=== PATIENT | male | born 1985 | race Caucasian/White ===

== ENCOUNTER 2019-12-26 15:09 | Outpatient (REF) | payer OTHER, SELFPAY ==
[2019-12-26 16:45] LABS: Hematocrit 45.2 % (42-52); Hemoglobin 15.4 g/dl (14.0-18.0)
[2019-12-26 17:09] LABS: Alanine Aminotransferase 64 U/L (0-40); Aspartate Amino Transferase 43 U/L (5-37)
[2019-12-26 17:31] LABS: Ferritin 77 ng/mL (20-250)
== END 2019-12-26 15:10 | disposition home or self-care (01) ==
LOC: HO.HMGCLDS 15:09
PROVIDERS: PCP Internal Medicine; Visit Provider Internal Medicine
DX: F90.9 Attention-deficit hyperactivity disorder, unspecified type (principal); K64.9 Unspecified hemorrhoids; E66.09 Other obesity due to excess calories; Z68.33 Body mass index [BMI] 33.0-33.9, adult; R79.0 Abnormal level of blood mineral
CPT/HCPCS: 36415; 82728; 84450; 84460; 85014; 85018

== ENCOUNTER 2020-04-21 11:42 | Outpatient (REF) | payer OTHER, SELFPAY ==
[2020-04-21 14:04] LABS: MANUAL DIFF FLAG NO
[2020-04-21 14:11] LABS: Basophils Percent Auto 0.6 % (0-2); Eosinophils Absolute Auto 0.3 X10*3/uL (0.0-0.4); Eosinophils Percent Auto 5.6 % (0-4); Hematocrit 41.8 % (42-52); Hemoglobin 14.3 g/dl (14.0-18.0); Imm Gran Abs Auto 0.01 X10*3/uL (0.00-0.03); Imm Gran Pct Auto 0.2 % (0.0-0.4); Lymphocytes Absolute Auto 1.8 X10*3/uL (1.2-4.9); Lymphocytes Percent Auto 34.9 % (20-40); Mean Corpuscular HGB Conc 34.2 g/dl (31.0-36.0); Mean Corpuscular Hemoglobin 29.7 pg (27.0-33.0); Mean Corpuscular Volume 86.7 fL (80-98); Mean Platelet Volume 10.4 fL (9.4-12.4); Monocytes Absolute Auto 0.4 X10*3/uL (0.1-1.2); Monocytes Percent Auto 7.4 % (2-11); Neutrophils Absolute Auto 2.7 X10*3/uL (2.0-8.3); Neutrophils Percent Auto 51.3 % (45-73); Platelet Count 221 X10*3/uL (160-400); Red Blood Count 4.82 X10*6/uL (4.60-5.80); Red Cell Distribution Width 12.5 % (11.0-16.0); White Blood Count 5.2 X10*3/uL (4.8-10.8)
[2020-04-21 14:44] LABS: Alanine Aminotransferase 84 U/L (0-40); Albumin Level 4.5 g/dL (3.5-5.0); Alkaline Phosphatase 51 U/L (39-117); Anion Gap 12 (12-20); Aspartate Amino Transferase 38 U/L (5-37); Bilirubin Direct 0.3 mg/dL (0.0-0.5); Bilirubin Total 0.9 mg/dL (0.0-1.0); Blood Urea Nitrogen 12 mg/dL (9-16); Calcium 9.5 mg/dL (8.4-10.2); Carbon Dioxide 27 mmol/L (22-29); Chloride 104 mmol/L (96-108); Cholesterol 241 mg/dL; Estimated Glomerular Filt Rate > 60; Glucose Fasting 101 mg/dL (60-99); HDL Cholesterol 38 mg/dL; LDL Cholesterol Calculated 180 mg/dl; Sodium 139 mmol/L (135-145); Total Protein 7.3 g/dL (6.5-8.0); Triglycerides 116 mg/dL
== END 2020-04-21 11:43 | disposition home or self-care (01) ==
LOC: HO.HMGCLDS 11:42
PROVIDERS: PCP Internal Medicine; Visit Provider Internal Medicine
DX: Z00.01 Encounter for general adult medical examination with abnormal findings (principal); E78.9 Disorder of lipoprotein metabolism, unspecified; R79.89 Other specified abnormal findings of blood chemistry; F98.8 Other specified behavioral and emotional disorders with onset usually occurring in childhood and adolescence
CPT/HCPCS: 36415; 80048; 80061; 80076; 85025

== ENCOUNTER 2020-12-08 22:24 | Emergency (ER) | payer OTHER, SELFPAY ==
--- NOTE | ~2020-12-08 | XR_ITS ---
EXAMINATION: XR KNEE, RIGHT CLINICAL INFORMATION: Edema. COMPARISON: No similar priors. TECHNIQUE: Four views of the right knee. FINDINGS: No evidence of acute fractures or malalignment. Indeterminate trabecular thickening and distortion of the medullary bone in the medial femoral condyle. Enthesophytes at the upper pole of the patella at the insertion site of the quadriceps tendon. Small joint effusion. Subcutaneous edema along the medial surface of the knee. No radiopaque foreign bodies. XR/XR knee RT 4V IMPRESSION: There is significant soft tissue thickening in the medial surface of the knee of uncertain etiology. No radiopaque foreign bodies. Small joint effusion. Indeterminate architectural distortion and trabecular thickening in the medial femoral condyle with a nonaggressive behavior. The overlying cortex is intact. If definite characterization is needed, consider further evaluation with an MR as a problem solving tool. No acute fractures or malalignment.
[2020-12-08 22:51] VITALS: BP 137/72; PULSE 94; RESP 16; TEMP 36.7; O2SAT 94; BMI 32.3
--- NOTE | 2020-12-08 23:41 | ED.LOWEXIN ---
HPI - Extremity Injury (Lower) General Chief Complaint: Extremity Injury, Lower Stated Complaint: leg inj Time Seen by Provider: 12/08/20 23:41 Source: patient Mode of arrival: ambulatory Limitations: no limitations History of Present Illness HPI Narrative: 35-year-old male no known medical history presents to the emergency department with right-sided knee pain x3 hours. He states he was playing softball, and slid into a base and his knee began to her, he also states that when he slid into the base someone's complete his right knee. He states it is worse with range of motion, better at rest. He states it hurts when bearing weight on that extremity. He states that the pain began immediately, and swelling also began immediately. He reports 10/10 pain with movement. He has no previous knee surgeries. Denies chest pain, shortness of breath, fevers, chills, weakness, numbness, tingling, paresthesias. MD complaint: knee injury (Right) Onset (ago): hour(s) (Three) Type of Injury: blunt Place: other (Softball) Severity: severe Severity scale (1-10): 10 Relieving factors: immobilization and rest Exacerbating factors: weight bearing, movement and other (Range of motion) Context: direct blow and other (Sliding into a base) Associated symptoms: swelling and unable to bear weight Other symptoms: none Related Data Home Medications Medication Instructions Recorded Confirmed albuterol sulfate 90 mcg/actuation 1 inh INHALATION Q6H PRN g 01/03/20 10/06/20 aerosol inhaler multivitamin (Daily Multi-Vitamin) 1 tab PO DAILY 01/03/20 10/06/20 Previous Rx's Medication Instructions Recorded dextroamphetamine-amphetamine ER 15 mg PO DAILY 30 Days #30 cap 10/06/20 15 mg 24hr capsule,extend release (Adderall XR) naproxen 500 mg tablet 500 mg PO BID #14 tab 12/09/20 tramadol 50 mg tablet 50 mg PO Q6H PRN #20 tab 12/09/20 Allergies Allergy/AdvReac Type Severity Reaction Status Date / Time amoxicillin [AMOXICILLIN] Allergy Unknown CHEST Verified 04/07/20 12:36 PAIN, chest tightness, chest pains Review of Systems Review of Systems: Constitutional : No Fever, No Chills, Cardiovascular : No Chest Pain, No SOB Respiratory : No Dyspnea Gastrointestinal : No abdominal pain Musculoskeletal : + Joint Swelling, + right kneep pain Skin : No rash, No skin laceration Neuro : No Weakness, No Numbness Neurologic: Reports Abnormal speech present [facility] Past Medical History Attestation statement: The following information was validated with the patient. Source: old records reviewed and nursing notes reviewed Medical History ADD (attention deficit disorder) LFT elevation Lipid disorder Surgical History Hemorrhoids Family History Family History Father Myocardial infarction Mother No problems noted. Paternal Grandfather Diabetes mellitus Maternal Aunt Cancer Sister Healthy female Sister Healthy female Sister Healthy female Social History Social History Alcohol intake: current Alcohol intake frequency: a few times a week Advance Directives: No Advance Directives Information Provided: No Physical Exam Vital Signs: Vital Signs: Last Vital Signs Temp 98.1 F 12/08/20 22:51 Pulse 94 12/08/20 22:51 Resp 16 12/08/20 22:51 BP 137/72 12/08/20 22:51 Pulse Ox 94 12/08/20 22:51 Body Mass Index 32.3 Const: General: cooperative Nutritional Appearance: average body habitus Orientation/consciousness: oriented to person, oriented to place and oriented to time Limitations: no limitations HENMT: Head: Yes normal to inspection Mouth: Normal oral and palatal mucosa present Eyes: General: appearance normal, both eyes and all related structures Pupils: Equal, round and reactive pupils present EOM: EOMs intact bilaterally Neck: Neck: Yes normal visual inspection and Yes full ROM Thyroid: Thyroid normal Lymphatic: no lymphadenopathy noted Resp: Effort & Inspection: normal respiratory effort and able to speak in complete sentences Auscultation: clear to auscultation bilaterally Cardio: Palpation: normal PMI Rate: regular rate Rhythm: regular rhythm and abnormal rhythm Heart sounds: S1 normal heart sound present and S2 normal heart sound present GI: Inspection: Yes normal to inspection Palpation (GI): Soft to palpation and nontender : General: Yes no CVA tenderness Back/Spine/Pelvis: Back: no CVA tenderness Neuro: General: oriented to person, oriented to place and oriented to time Cranial nerves: Yes CN's II-XII intact bilaterally and Yes Equal, round and reactive pupils present Cognition (Neuro): normal cognition Speech: Abnormal speech present Gait exam (Neuro): Normal gait present Motor exam (neuro): 5/5 motor strength present throughout Sensory Exam: Normal double simultaneous stimulation for sensation Extrem: Other: 5/5 strength bilateral lower extremities. Sensation and motor intact bilaterally Neurovascularly intact. No abnormalities of the noted to left lower extremity General: No normal to inspection, No full ROM, Yes capillary refill normal, No no joint enlargement, Yes no pedal edema, Yes edema and Yes Limp noted Elbow/forearm/wrist images: 1. Erythema, calor and swelling noted overlying the right knee. Large knee effusion noted. Painful range of motion to right knee Clicking sound noted with manipulation of the right patella. Pain to palpation worse to the medial aspect of the patella, and inferior to the medial aspect of the right patella. There is also ecchymosis and an area of induration noted inferior/medial to the right patella, likely a hematoma. Psych: Mental Status: mental status grossly normal Course Reevaluation(s) Reevaluation #1: X-ray of the right knee shows small joint effusion, significant is thickening in the medial knee. MDM - Extremity Injury (Lower) MDM Narrative Medical decision making narrative: 35-year-old male no medical history presents to the emergency department with right-sided knee pain x3 hour. He was sliding into a base playing softball, when he fell he started feeling the pain, and at the same time someone hit his knee with a cleat. He reports 10/10 pain, worse with movement better at rest. When he fell he denies his head, did not lose consciousness. Upon physical examination there a is a small effusion over the right knee, with overlying erythema, and calor. He has limited range of motion to the right knee due to pain and swelling There is ecchymosis noted overlying the right knee and inferior to the patella there is induration, likley a hematoma with overlying ecchymosis Normal strength to bilateral lower extremities. Neurovascularly intact bilaterally. No foot drop. Needle aspiration of hematoma attempted very small amount of blood came likely patient has hematoma already clotted He will receive crutches, and an Alexy wrap to help with swelling. He will be educated on RICE. He should follow up with Ortho if symptoms do not resolve or improve within a week Discharge Plan Discharge Clinical Impression: Effusion of knee joint right, Hematoma of right knee region Patient Disposition: Home, Self-Care Instructions: Contusion in Adults (ED), Swollen Knee Joint (ED), Swollen Joint (ED) Additional Instructions: Follow-up with orthopedics in a week if symptoms do not improve, or if they get worse. Use crutches as instructed. Use Alexy wrap as instructed Pain medication has been sent to your pharmacy Return to the emergency department with new or worsening symptoms Prescriptions: New tramadol 50 mg tablet 50 mg PO Q6H PRN (Reason: pain) Qty: 20 RF: 0 naproxen 500 mg tablet 500 mg PO BID Qty: 14 RF: 0 No Action albuterol sulfate 90 mcg/actuation HFA aerosol inhaler 1 inh inhalation Q6H PRNRF: 0 multivitamin [Daily Multi-Vitamin] Tablet 1 tab PO DAILY RF: 0 dextroamphetamine-amphetamine [Adderall XR] 15 mg capsule,extended release 24hr 15 mg PO DAILY 30 Days Qty: 30 RF: 0 Referrals: Joe Foster MD [Physician] - 1 week (Follow-up with orthopedics if symptoms do not improve within a week, or if they worsen)
[2020-12-09] MEDS: oxyCODONE HCl Immed Release 5 MG TABLET PO (00:24)
== END 2020-12-09 00:37 | disposition home or self-care (01) ==
PROVIDERS: Emergency Provider Internal Medicine; PCP Internal Medicine
DX: M25.461 Effusion, right knee (principal); M25.561 Pain in right knee; Z79.899 Other long term (current) drug therapy
CPT/HCPCS: 73564; 99283

== ENCOUNTER 2021-04-09 11:49 | Outpatient (REF) | payer OTHER, SELFPAY ==
[2021-04-09 14:08] LABS: MANUAL DIFF FLAG NO
[2021-04-09 14:16] LABS: Basophils Percent Auto 0.7 % (0-2); Eosinophils Absolute Auto 0.4 X10*3/uL (0.0-0.4); Eosinophils Percent Auto 7.4 % (0-4); Hematocrit 42.1 % (42.0-52.0); Imm Gran Abs Auto 0.02 X10*3/uL (0.00-0.03); Imm Gran Pct Auto 0.4 % (0.0-0.4); Lymphocytes Absolute Auto 1.6 X10*3/uL (1.2-4.9); Lymphocytes Percent Auto 28.4 % (20-40); Mean Corpuscular HGB Conc 33.3 g/dl (31.0-36.0); Mean Corpuscular Hemoglobin 28.7 pg (27.0-33.0); Mean Corpuscular Volume 86.4 fL (80.0-98.0); Mean Platelet Volume 10.6 fL (9.4-12.4); Monocytes Absolute Auto 0.5 X10*3/uL (0.1-1.2); Monocytes Percent Auto 8.1 % (2-11); Neutrophils Absolute Auto 3.1 x10*3/uL (2.0-8.3); Platelet Count 202 X10*3/uL (160-400); Red Blood Count 4.87 X10*6/uL (4.60-5.80); White Blood Count 5.7 X10*3/uL (4.8-10.8)
[2021-04-09 14:31] LABS: Alanine Aminotransferase 66 U/L (0-40); Albumin Level 4.4 g/dL (3.5-5.0); Alkaline Phosphatase 50 U/L (39-117); Anion Gap 13 (12-20); Aspartate Amino Transferase 49 U/L (5-37); Bilirubin Total 0.5 mg/dL (0.0-1.0); Blood Urea Nitrogen 12 mg/dL (9-16); Calcium 9.8 mg/dL (8.4-10.2); Carbon Dioxide 26 mmol/L (22-29); Chloride 105 mmol/L (96-108); Estimated Glomerular Filt Rate > 60; Glucose Random 107 mg/dL (60-115); Potassium 4.5 mmol/L (3.3-5.1); Sodium 139 mmol/L (135-145); Total Protein 7.4 g/dL (6.5-8.0)
[2021-04-11 08:32] LABS: LDL Cholesterol Direct 164 mg/dL (<100)
== END 2021-04-09 11:50 | disposition home or self-care (01) ==
LOC: HO.HMGCLDS 11:49
PROVIDERS: Visit Provider Internal Medicine
DX: F98.8 Other specified behavioral and emotional disorders with onset usually occurring in childhood and adolescence (principal); R79.89 Other specified abnormal findings of blood chemistry; E78.9 Disorder of lipoprotein metabolism, unspecified
CPT/HCPCS: 36415; 80053; 83721; 85025

== ENCOUNTER 2021-10-15 18:39 | Emergency (ER) | payer BC, SELFPAY ==
--- NOTE | 2021-10-15 | ECG_ITS ---
Test Reason : PALPITATIONS Blood Pressure : / mmHG Vent. Rate : 089 BPM Atrial Rate : 089 BPM P-R Int : 148 ms QRS Dur : 096 ms QT Int : 364 ms P-R-T Axes : 062 022 053 degrees QTc Int : 442 ms Normal sinus rhythm with sinus arrhythmia Normal ECG When compared with ECG of 19-MAR-2016 13:33, No significant change was found Referred By: Generic ED Physician Electronically Signed By:JOSE BELLAMY
--- NOTE | ~2021-10-15 | XR_ITS ---
EXAMINATION: XR CHEST CLINICAL INFORMATION: Chest pain COMPARISON: None TECHNIQUE: Frontal view of the chest was obtained. FINDINGS: Cardiac leads overlie the chest. The lungs are well expanded. There is no focal consolidation, edema, or effusion. No pneumothorax. The cardiomediastinal silhouette is within normal limits. No acute osseous abnormality. XR/XR chest 1V IMPRESSION: Clear lungs.
[2021-10-15 18:45] VITALS: BP 146/82; PULSE 88; RESP 16; TEMP 36.7; O2SAT 98; BMI 31.8
[2021-10-15 19:14] LABS: Hematocrit 41.3 % (42.0-52.0); Hemoglobin 14.6 g/dl (14.0-18.0); Mean Corpuscular HGB Conc 35.4 g/dl (31.0-36.0); Mean Corpuscular Volume 81.9 fL (80.0-98.0); Mean Platelet Volume 9.8 fL (9.4-12.4); Platelet Count 209 X10*3/uL (160-400); Red Blood Count 5.04 X10*6/uL (4.60-5.80); Red Cell Distribution Width 13.3 % (11.0-16.0); White Blood Count 9.4 X10*3/uL (4.8-10.8)
[2021-10-15 19:28] LABS: Anion Gap 17 (12-20); Blood Urea Nitrogen 13 mg/dL (9-16); Calcium 9.9 mg/dL (8.4-10.2); Carbon Dioxide 22 mmol/L (22-29); Chloride 104 mmol/L (96-108); Creatinine Clr Calc Pharmacy 118.5; Estimated Glomerular Filt Rate > 60; Glucose Random 99 mg/dL (60-115); Potassium 3.4 mmol/L (3.3-5.1); Sodium 140 mmol/L (135-145)
[2021-10-15 19:35] LABS: Troponin-I High Sensitivity < 3.5 ng/L (<3.5-35.0)
[2021-10-15 20:36] VITALS: BP 143/74; PULSE 59; RESP 12; TEMP 37.1; O2SAT 98
[2021-10-15 22:15] VITALS: BP 148/75; PULSE 63; RESP 17; O2SAT 97
[2021-10-15 22:25] VITALS: BP 127/72; PULSE 61
[2021-10-15 22:27] VITALS: BP 137/81; PULSE 61
[2021-10-15 22:29] VITALS: BP 135/90; PULSE 74
[2021-10-15] MEDS: 0.9 % Sodium Chloride 1,000 ML 999 ML IV (22:44)
--- NOTE | 2021-10-15 22:44 | ED.GENADULT ---
HPI - General Adult General Chief complaint: Arrhythmia/Palpitations Stated complaint: Chest pain Time Seen by Provider: 10/15/21 20:33 Source: patient Mode of arrival: ambulatory Limitations: no limitations History of Present Illness HPI narrative: This 36-year-old male with no significant past medical history who presents to the emergency department following an episode of dizziness earlier today. He states that he was driving home earlier this evening when he suddenly became dizzy, described as lightheaded. During this time he tells me that his chest felt diffusely tight, began having palpitations, started to feel short of breath and began having bilateral upper extremity numbness. At this time he looked at his watch and the heart rate was 114. He states that this lasted approximately 4 hours. 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 Upon getting home his symptoms persisted , cannot decipher whether his dizziness with positional or not. States that he has never had these symptoms before. Symptoms have now subsided completely. His primary care physician is currently monitoring his blood pressure, last blood pressure reading was in the 140s over 80s, at that time PCP wanted to start him on blood pressure medication however he opted for lifestyle modifications and is currently not being managed with antihypertensives. Denies history of anxiety or panic attacks. Denies personal history of cardiac disease, no significant family history no history of sudden cardiac . No history of clots or DVTs. States that both grandfathers have had cardiac bypasses. Denies headache, vision changes, gait issues, dysarthria, nausea, vomiting, abdominal pain, shortness of breath, chest pain. To note patient tells me that he is under lot of new stressors in life, has a wedding he is currently planning for, a lot of family drama and a new job which is causing him a lot of stress he tells me this is new and has been causing him some anxiety although has never been diagnosed with anxiety. Related Data Home Medications Medication Instructions Recorded Confirmed multivitamin (Daily Multi-Vitamin 1 tab PO DAILY 01/03/20 07/09/21 tablet) Previous Rx's Medication Instructions Recorded albuterol sulfate 90 mcg/actuation 1 inh inhalation Q6H PRN 07/09/21 aerosol inhaler bronchospasm 3 days #8.5 grams dextroamphetamine-amphetamine ER 15 mg PO DAILY 30 days #30 caps 07/09/21 15 mg 24hr capsule,extend release (Adderall XR) hydroxyzine HCl 25 mg tablet 25 mg PO BEDTIME PRN anxiety #20 10/16/21 tabs Allergies Allergy/AdvReac Type Severity Reaction Status Date / Time amoxicillin [AMOXICILLIN] Allergy Unknown CHEST Verified 04/09/21 11:20 PAIN, chest tightness, chest pains Review of Systems Review of Systems: Constitutional : No Weight loss, No Fever, No Chills, No Fatigue, No Malaise ENT/Mouth : No sore throat, No Rhinorrhea Eyes: No Eye Pain, No Swelling, No Redness Cardiovascular : No Chest Pain, No SOB, No Dyspnea on Exertion, No Orthopnea, No Edema, No Palpitations Respiratory : No Cough, No Sputum, No Wheezing Gastrointestinal : No Nausea, No Vomiting, No Diarrhea, No Constipation, No abdominal Pain, No Hematochezia, No Melena Genitourinary : No Dysuria, No Urinary Frequency, No Hematuria, Musculoskeletal : No joint pain, No Myalgias, No Joint Swelling Skin : No Skin Lesions, No rash Neuro : No Weakness, No Numbness, No Dizziness, No Headache Psych : No Anxiety/Panic, No Depression Heme/Lymph: No Bruising, No Bleeding,No Lymphadenopathy Endocrine : No Polyuria, No Polydipsia All other systems reviewed and are negative Yes all other systems are reviewed and are negative [facility] Past Medical History Attestation statement: The following information was validated with the patient. Source: old records reviewed and nursing notes reviewed Medical History ADD (attention deficit disorder) LFT elevation Lipid disorder Surgical History Hemorrhoids Family History Family History Father Myocardial infarction Mother No problems noted. Paternal Grandfather Diabetes mellitus Maternal Aunt Cancer Sister Healthy female Sister Healthy female Sister Healthy female Other Mental health disorder Substance use disorder Social History Social History Housing: House Alcohol intake: current Alcohol intake frequency: a few times a week Patient Tobacco Use Status: Never used Tobacco e-Cigarette/Vaping Use: Currently Using Use of substances other than those prescribed or required for medical reasons: Yes Substance Use Type: Marijuana Advance Directives: No Current occupational status: unemployed Physical Exam ED Vital Signs: Vital Signs - 24 hr 10/15/21 18:45 10/15/21 20:36 10/15/21 22:15 Temperature 98.1 F 98.8 F Pulse Rate 88 59 63 Respiratory Rate 16 12 17 Blood Pressure 146/82 H 143/74 H 148/75 H Pulse Oximetry 98 98 97 Oxygen Delivery Method Room Air Room Air Room Air 10/15/21 22:25 10/15/21 22:27 10/15/21 22:29 Temperature Pulse Rate 61 61 74 Respiratory Rate Blood Pressure 127/72 137/81 135/90 H Pulse Oximetry Oxygen Delivery Method BMI result Body Mass Index 31.8 vss Appearance: Alert.? Oriented X3.? No acute distress.? Head: Normocephalic, atraumatic, no step-offs or deformities Eyes: Pupils equal, round and reactive to light.?EOMI ENT: Pharynx normal.? Neck: Normal inspection.? Neck supple.? CVS: Normal heart rate and rhythm.? Pulses normal.? Respiratory: No respiratory distress.? Breath sounds normal.? Abdomen: Soft and nontender.? Skin: Skin warm and dry.? Normal skin color.? Normal skin turgor.? Extremities: No lower extremity edema.? No calf ttp, neagtive olaf. 5/5 strength to bilateral upper and lower extremities Neuro: Oriented X 3.? No motor deficit.? No sensory deficit. CN 2-12 intact . Ambulating with steady gait normal coordination. Normal [id number], [id number], negative Romberg and pronator drift. Course Reevaluation(s) Reevaluation #1: CBC within normal limits and without infection. Chemistry without acute electrolyte abnormalities requiring intervention. Troponin negative. Chest radiograph without acute abnormalities. Orthos negative. Time: 19:30 Reevaluation #2: At time of discharge patient is lying comfortably in bed. Tells me that that he no longer feels dizzy, does not have any chest discomfort or SOB and no longer has weakness, numbness or tinging to his bilateral upper extremities. Tells me that he is feeling fine, although a little tired and is ready to go home. Patient's labs and imaging without any acute abnormalities requiring intervention, likely anxiety driven. Advised the patient to follow-up with his PCP over the next week. Educated the patient on returning to the emergency department for worrisome or worsening symptoms. Addressed all patient's questions. Patient agreeable to disposition. Will give patient Atarax for anxiety. Educated him on worrisome signs and symptoms. Time: 00:15 Medical Decision Making MDM Narrative Medical decision making narrative: 2229 This is a 36-year-old male presenting with a complaint of dizziness, chest tightness, palpitations, shortness, and bilateral upper extremity numbness x4 hours, which has since resolved. The symptoms have subsided completely in ED. No history of cardiac disease, DVT, PE, anxiety, panic attacks. Reports recent life stressors. Physical exam benign. S1 and S2 appreciated, no murmurs rubs or gallops. Normal breath sounds bilaterally, no rales rhonchi or wheezes. Cerebellar exam normal. Orthostatic vital signs negative. Likely anxiety. Unlikely PE, DVT, ACS, posterior stroke, stroke. PERC negative Plan at this time is to order basic labs, EKG, chest x-ray Medical Records Medical records reviewed: Yes I reviewed the patient's medical records. Lab Data Lab results reviewed: Yes I reviewed the patient's lab results. Result diagrams: 10/15/21 18:59 10/15/21 18:59 Labs: Lab Results 10/15/21 10/15/21 10/15/21 Range/Units 18:59 18:59 18:59 WBC 9.4 (4.8-10.8) X10*3/uL RBC 5.04 (4.60-5.80) X10*6/uL Hgb 14.6 (14.0-18.0) g/dl Hct 41.3 L (42.0-52.0) % MCV 81.9 (80.0-98.0) fL MCH 29.0 (27.0-33.0) pg MCHC 35.4 (31.0-36.0) g/dl RDW 13.3 (11.0-16.0) % Plt Count 209 (160-400) X10*3/uL MPV 9.8 (9.4-12.4) fL Absolute Nucleated RBC 0.000 (0.0-0.012) X10*3/uL Nucleated RBC % (auto) 0.0 (0.0-0.2) /100WBC Sodium 140 (135-145) mmol/L Potassium 3.4 D (3.3-5.1) mmol/L Chloride 104 (96-108) mmol/L Carbon Dioxide 22 (22-29) mmol/L Anion Gap 17 (12-20) BUN 13 (9-16) mg/dL Creatinine 1.14 (0.5-1.4) mg/dL Estim Creat Clear Calc 118.5 Estimated GFR > 60 Random Glucose 99 (60-115) mg/dL Calcium 9.9 (8.4-10.2) mg/dL Troponin I High Sens < 3.5 (<3.5-35.0) ng/L Critical Care Time Critical Care Time Critical Care Time: No Discharge Plan Discharge Clinical Impression: Anxiety, Palpitations, Dizziness, Chest pain not due to acute coronary syndrome Patient Disposition: Home, Self-Care Instructions: Dizziness (ED), Anxiety (ED), Chest Wall Pain (ED), Panic Attack (ED) Additional Instructions: Take your medications as prescribed. If you were prescribed antibiotics today, it is important that you take your medication to their entirety, do not skip any doses, do not finish them early. Follow-up with your primary care provider this week. Return to the emergency department with new or worsening symptoms. Such as fevers, chills, chest pain, shortness of breath, nausea, vomiting, dizziness, headache, vision changes, lethargy, numbness, weakness. In case of emergency call 911 FINDINGS: Cardiac leads overlie the chest. The lungs are well expanded. There is no focal consolidation, edema, or effusion. No pneumothorax. The cardiomediastinal silhouette is within normal limits. No acute osseous abnormality. XR/XR chest 1V IMPRESSION: Clear lungs. Prescriptions: New hydroxyzine HCl 25 mg tablet 25 mg PO BEDTIME PRN (Reason: anxiety) Qty: 20 0RF No Action multivitamin [Daily Multi-Vitamin] Tablet 1 tab PO DAILY dextroamphetamine-amphetamine [Adderall XR] 15 mg capsule,extended release 24hr 15 mg PO DAILY 30 Days Qty: 30 0RF albuterol sulfate 90 mcg/actuation HFA aerosol inhaler 1 inh inhalation Q6H PRN (Reason: bronchospasm) 3 Days Qty: 8.5 1RF Referrals: Niyah Kelsey MD [Primary Care Provider] - 2 days Chino Oliva MD [Physician] - 2 weeks Stand Alone Forms: Work/School Release
[2021-10-16 00:43] VITALS: BP 122/82; PULSE 76; RESP 17; O2SAT 97
== END 2021-10-16 00:44 | disposition home or self-care (01) ==
PROVIDERS: Emergency Provider Emergency Medicine; PCP Internal Medicine
DX: R07.89 Other chest pain (principal); R00.2 Palpitations; F41.1 Generalized anxiety disorder; F43.0 Acute stress reaction; R42 Dizziness and giddiness; Z79.899 Other long term (current) drug therapy
CPT/HCPCS: 36415; 71045; 80048; 84484; 85027; 93005; 99283; 99285